=== PATIENT | female | born 1985 | race Caucasian/White ===

== ENCOUNTER → 2016-11-07 | Outpatient (CLI) | payer BC ==
--- NOTE | 2016-11-07 11:45 | RAD ---
Examination: Ultrasound abdomen complete History: History of hypertension Comparison: None available Findings: The visualized aorta, IVC appear patent. The visualized pancreas grossly appears unremarkable. The echogenicity of the liver grossly appears unremarkable. No evidence of gallstones identified within the gallbladder. The right kidney measures 12.0 x 4.8 x4.0 cm. The left kidney measures 12.3 x 4.5 x 5.9 cm. The spleen grossly appears unremarkable. Impression: Unremarkable visualized exam
--- NOTE | 2016-11-07 11:47 | RAD ---
Examination: Ultrasound renal duplex History: History of hypertension. Comparison: None available Findings: The velocity in the aorta is 167 cm/s The velocity in the right renal artery ranges from 109 - 115 cm/s The velocity in the left renal artery ranges from 81-138 cm/s The right renal artery to aorta velocity ratio 0.68. The left renal artery to aorta velocity ratio 0.79 The length of the right kidney is 12 cm. Length of the left kidney is 12 cm. Impression: No evidence of hemodynamically significant stenosis.
== END | disposition home or self-care (01) ==
LOC: US 09:36
PROVIDERS: ATTEND Internal Medicine Nephrology
DX: I10 Essential (primary) hypertension (principal)
CPT/HCPCS: 76700; 76770